=== PATIENT | female | born 1985 | race Caucasian/White ===

== ENCOUNTER 2024-04-22 19:03 | Emergency (ER) | payer BC, SELFPAY ==
[2024-04-22 19:07] VITALS: BP 123/93; PULSE 86; RESP 16; TEMP 36.7; O2SAT 98; BMI 41.3
--- NOTE | 2024-04-22 20:26 | ED_ITS ---
HPI - Wound/Laceration General Date Seen: 04/22/24 Chief Complaint: Laceration/Wound Stated Complaint: cut L hand Time Seen by Provider: 04/22/24 19:09 Source: patient and family Mode of arrival: ambulatory Limitations: no limitations History of Present Illness HPI narrative: Patient is a very nice 38-year-old female who presents here after she lacerated her left palm, while she was preparing on avocado. This occurred approximately 10 minutes before being seen, she describes a laceration over the lateral side her ulnar side of her left palm, she does not have any numbness tingling, can move her fingers normally. Her last tetanus she believes is up-to-date, she does have numerous allergies to antibiotics. Was really no evidence of any bleeding. Extremity Location: Left: hand Place: home Patient tetanus UTD: Yes Context: accidental Associated symptoms: none Treatments prior to arrival: bandage Related Data Home Medications ?Medication ?Instructions ?Recorded ?Confirmed albuterol sulfate 90 mcg/actuation 2 puff inhalation Q4H PRN wheezing 10/31/23 10/31/23 aerosol inhaler (Ventolin HFA) escitalopram oxalate 20 mg tablet 20 mg PO QPM 10/31/23 10/31/23 fluticasone propionate 100 2 inh inhalation BID 10/31/23 10/31/23 mcg/actuation blister powder for inhalation levothyroxine 150 mcg tablet 150 mcg PO DAILY 10/31/23 10/31/23 topiramate 50 mg tablet mg PO QAM 10/31/23 10/31/23 Previous Rx's ?Medication ?Instructions ?Recorded albuterol sulfate 2.5 mg/3 mL 2.5 mg (3 mL) inhalation Q4-6H PRN 10/31/23 (0.083 %) solution for nebulization shortness of breath or wheezing #90 mL Allergies Allergy/AdvReac Type Severity Reaction Status Date / Time amoxicillin Allergy Severe Anaphylaxis Verified 10/31/23 09:19 clindamycin Allergy Severe Anaphylaxis Verified 10/31/23 09:19 Penicillins Allergy Severe Anaphylaxis Verified 10/31/23 09:19 Review of Systems Status of ROS: Reports: 6 or more systems reviewed and unremarkable except as noted in History and below [facility] Medical History Cough ?R05.9 - Cough, unspecified (ICD-10) Asthma ?J45.909 - Unspecified asthma, uncomplicated (ICD-10) Social History Smoking Status: Never smoker Second hand tobacco smoke exposure: No How often do you have a drink containing alcohol: never AUDIT-C Alcohol total score: 0 Non-prescribed substance use: denies use Exam Narrative: Exam Narrative: On examination there is a small laceration to her left palm, on the palmar surface horizontally over the mid palm overlying the of 5th flexor tendon area. That laceration is approximately 2 in in length. There is some gaping fat noted. She is able to both do D IP and PIP flexion, with resistance with no pain, there is no evidence of any numbness tingling or her 4th and 5th finger noted. Cap refill is excellent, noted. There is no evidence of dirtyniss , or foreign body within the wound. Wound is cleaned out with 1 L of normal saline, sterile prep and drape is done. With chlorhexidine. Wound is anesthetized with 1% lidocaine with epinephrine x5 mL, this resulted in good anesthesia, I then probed the wound, and found that to be down to the fat, but not deeper. His then closed with 3 times 4-0 Prolene sutures, to good affect. Estimated blood loss less than 1 mL. She tolerated this well, neurovascular integrity was full at the end of the procedure, there were no complications. Const: Vital Signs, click to edit/add: Vital Signs - 24 hr 04/22/24 19:07 Temperature 98.1 F Pulse Rate [Pulse Oximeter] 86 Respiratory Rate 16 Blood Pressure [Ri ght Upper Arm] 123/93 H Pulse Oximetry 98 Oxygen Delivery Me thod Room Air Documenting provider has reviewed patient's vital signs: yes Course Vital Signs Vital signs: Initial Vital Signs Temperature 98.1 F 04/22/24 19:07 Temperature Source Temporal Artery Scan 04/22/24 19:07 Pulse Rate 86 04/22/24 19:07 Respiratory Rate 16 04/22/24 19:07 Blood Pressure 123/93 H 04/22/24 19:07 Blood Pressure Mean 103 04/22/24 19:07 Blood Pressure Position Sitting 04/22/24 19:07 Pulse Oximetry 98 04/22/24 19:07 Oxygen Delivery Method Room Air 04/22/24 19:07 Vital Signs Temperature 98.1 F 04/22/24 19:07 Pulse Rate 86 04/22/24 19:07 Respiratory Rate 16 04/22/24 19:07 Blood Pressure 123/93 H 04/22/24 19:07 Pulse Oximetry 98 04/22/24 19:07 Oxygen Delivery Method Room Air 04/22/24 19:07 Temperature 98.1 F 04/22/24 19:07 Pulse Rate 86 04/22/24 19:07 Respiratory Rate 16 04/22/24 19:07 Blood Pressure 123/93 H 04/22/24 19:07 Pulse Oximetry 98 04/22/24 19:07 Oxygen Delivery Method Room Air 04/22/24 19:07 Medications Administered Medications: Discontinued Medications Generic Name Dose Route Start Last Admin Trade Name Freq PRN Reason Stop Dose Admin Lidocaine/Epinephrine 20 ml 04/22/24 19:14 04/22/24 19:25 Lidocaine 1%-Epi 1:100,000 20 Ml INFILTRATI 04/22/24 19:15 20 ml ONCE ONE Administration Discharge Plan Discharge Clinical Impression: Laceration of hand Patient Disposition: Home w/ Parent or Adult Condition: Stable Instructions: Laceration (DC) Additional Instructions: Home rest, bacitracin daily to the wound. Recommend the bandage for the 1st 3-4 days, showering is encouraged, but no swimming, signs of infection such as redness pain, fevers chills, or swelling you should be seen in follow-up. Sutures should come out in 10 days I recommend he do this with her primary care physician. Return here as needed. Activity Level: Light activity Prescriptions: No Action levothyroxine 150 mcg tablet 150 mcg PO DAILY topiramate 50 mg tablet PO QAM escitalopram oxalate 20 mg tablet 20 mg PO QPM albuterol sulfate [Ventolin HFA] 90 mcg/actuation HFA aerosol inhaler 2 puff inhalation Q4H PRN (Reason: wheezing) fluticasone propionate 100 mcg/actuation blister with device 2 inh inhalation BID albuterol sulfate 2.5 mg /3 mL (0.083 %) solution for nebulization 2.5 mg inhalation Q4-6H PRN (Reason: shortness of breath or wheezing) Qty: 90 1RF Follow Up/Referrals: Provider,Not a Local [Primary Care Provider] - Stand Alone Forms: MyHealth Info Instructions
== END 2024-04-22 20:16 | disposition home or self-care (01) ==
PROVIDERS: Emergency Provider Family Medicine
DX: S61.412A Laceration without foreign body of left hand, initial encounter (principal); W26.0XXA Contact with knife, initial encounter
CPT/HCPCS: 12001; 99283

== ENCOUNTER 2024-05-02 11:31 | Emergency (ER) | payer BC, SELFPAY ==
[2024-05-02 12:06] VITALS: BP 113/75; PULSE 67; RESP 18; TEMP 36.1; O2SAT 96; BMI 41.3
--- NOTE | 2024-05-02 12:10 | ED.GENADULT ---
HPI - General Adult General Date Seen: 05/02/24 Chief complaint: Skin/Abscess/Foreign Body Stated complaint: Attempted suture removal, redness, not healing Time Seen by Provider: 05/02/24 12:10 History of Present Illness HPI narrative: Patient was seen in the ER 10 days ago on 04/22 with a laceration on her left hand on her palm. Wound was repaired by Dr. Casas using #3 4-0 Prolene sutures. No vascular, neurologic, or tendon injury. The wounds been healing well. She has been keeping covered with bandages and cleaning it. No concern for worsening redness or purulent drainage. 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 She notes that sometimes when she opens up her left hand she can feel the wound edge pulling apart 100 stitches. It was 10 days out from the suture placement and she knew today was the day to remove the stitches. She remove them herself at home. After removing the stitches she noticed that the wound edge pulled apart. Also there is a little rim of pink skin around the wound edge. No purulent drainage. No bleeding. She feels like it does not look quite right since stitches pulled out so she came in. Related Data Home Medications ?Medication ?Instructions ?Recorded ?Confirmed albuterol sulfate 90 mcg/actuation 2 puff inhalation Q4H PRN wheezing 10/31/23 05/02/24 aerosol inhaler (Ventolin HFA) escitalopram oxalate 20 mg tablet 20 mg PO QPM 10/31/23 05/02/24 fluticasone propionate 100 2 inh inhalation BID 10/31/23 05/02/24 mcg/actuation blister powder for inhalation levothyroxine 150 mcg tablet 150 mcg PO DAILY 10/31/23 05/02/24 Previous Rx's ?Medication ?Instructions ?Recorded albuterol sulfate 2.5 mg/3 mL 2.5 mg (3 mL) inhalation Q4-6H PRN 10/31/23 (0.083 %) solution for nebulization shortness of breath or wheezing #90 mL Allergies Allergy/AdvReac Type Severity Reaction Status Date / Time amoxicillin Allergy Severe Anaphylaxis Verified 05/02/24 12:12 clindamycin Allergy Severe Anaphylaxis Verified 05/02/24 12:12 Penicillins Allergy Severe Anaphylaxis Verified 05/02/24 12:12 [facility] Medical History Cough ?R05.9 - Cough, unspecified (ICD-10) Asthma ?J45.909 - Unspecified asthma, uncomplicated (ICD-10) Social History Smoking Status: Never smoker Second hand tobacco smoke exposure: No How often do you have a drink containing alcohol: never AUDIT-C Alcohol total score: 0 Non-prescribed substance use: denies use Exam Narrative: Exam Narrative: Constitutional: Appears well-developed and well-nourished. Active. Non-toxic appearing. HENT: Head: Atraumatic. No signs of injury. Nose: No nasal discharge. Mouth/Throat: Mucous membranes are moist. Pharynx is normal. Tonsils symmetric. Uvula midline. Airway patent. Eyes: Conjunctivae normal and EOM are normal. Pupils are equal, round, and reactive to light. Right eye exhibits no discharge. Left eye exhibits no discharge. No icterus. Neck: Normal range of motion. Neck supple. No adenopathy. No stridor. Cardiovascular: Normal rate and regular rhythm. No murmur heard. No murmurs, rubs, or gallops. Brisk capillary refill Pulmonary/Chest: Effort normal. No stridor. No respiratory distress. No wheezes.No rhonchi. No rales. No retractions. Musculoskeletal: Normal range of motion in her elbow and wrist.. No edema. No tenderness. No deformity. She has a healing 1.5 cm laceration on the ulnar side palmar surface of her left hand. The laceration runs perpendicular to the axis of her 5th and 4th metacarpals. There is a small 2-3 mm rim of pink erythema consistent with healing but not suggestive of infection. No bleeding. No purulent drainage. No palpable fluctuance. No gas in the soft tissue. She has the lyles from 3 sutures that have been removed on each side. The wound edge has dehisced about 1 mm and I can see signs of granulation tissue and healing at the base of the wound. No foreign body. Intact radial and ulnar digital nerve function in the fingers including the 3rd, 4th, 5th digits. Normal flexion and extension of the MCP, PIP, DI P joints. Patient feels if she hyperextends her 5th digit that she can feel her wound edge pulling apart. Neurological: Alert. Normal strength. No cranial nerve deficit or sensory deficit. Coordination normal. GCS eye subscore is 4. GCS verbal subscore is 5. GCS motor subscore is 6. Skin: Skin is warm. No rash noted. Const: Vital Signs, click to edit/add: Vital Signs - 24 hr 05/02/24 12:06 Temperature 96.9 F L Pulse Rate [Pulse Oximeter] 67 Respiratory Rate 18 Blood Pressure [Ri ght Upper Arm] 113/75 Pulse Oximetry 96 Oxygen Delivery Me thod Room Air Course Vital Signs Vital signs: Initial Vital Signs Temperature 96.9 F L 05/02/24 12:06 Temperature Source Temporal Artery Scan 05/02/24 12:06 Pulse Rate 67 05/02/24 12:06 Respiratory Rate 18 05/02/24 12:06 Blood Pressure 113/75 05/02/24 12:06 Blood Pressure Mean 87 05/02/24 12:06 Blood Pressure Position Sitting 05/02/24 12:06 Pulse Oximetry 96 05/02/24 12:06 Oxygen Delivery Method Room Air 05/02/24 12:06 Vital Signs Temperature 96.9 F L 05/02/24 12:06 Pulse Rate 67 05/02/24 12:06 Respiratory Rate 18 05/02/24 12:06 Blood Pressure 113/75 05/02/24 12:06 Pulse Oximetry 96 05/02/24 12:06 Oxygen Delivery Method Room Air 05/02/24 12:06 Temperature 96.9 F L 05/02/24 12:06 Pulse Rate 67 05/02/24 12:06 Respiratory Rate 18 05/02/24 12:06 Blood Pressure 113/75 05/02/24 12:06 Pulse Oximetry 96 05/02/24 12:06 Oxygen Delivery Method Room Air 05/02/24 12:06 Medical Decision Making MDM Narrative Medical decision making narrative: Pleasant generally healthy 38-year-old female who is 10 days status post a kitchen related laceration to her left palm. It had been repaired on the day of injury here in the ER. Today was 10 days out from a pair and she was due to have sutures removed. She removed her sutures at home and after removing them it sounds like her wound edge dehisced. Although it has been 10 days since suture placement, and this was the day that she was instructed to follow up for suture removal, It looks like the wound was not completely heal prior to removing the stitches neighbor probably removed a little bit prematurely. Fortunately no signs of infection. No signs of tendon or vascular or nerve injury. At this point best course of action would be to Steri-Strip the wound edge to supported. She will remain off work for the next 2 days (on and Tuesday) and then through the weekend to give her 4 days to rest her left hand. If she avoids activities that require gripping and bending and flexion extending her fingers, this should allow the wound edge time with support to heal. She will avoid submerging hand under water and keep the wound clean and dry to prevent infection. Discussed the plan of care with the patient. She is agreeable. Discharge Plan Discharge Clinical Impression: Dehiscence of wound Patient Disposition: Home, Self-Care Condition: Stable Instructions: Skin Adhesive Care (ED) Additional Instructions: As we discussed, we have to keep the wound edge supported with the Steri-Strips. Try to keep her hand clean and dry so that the Steri-Strips do not peel off and to avoid getting the wound infected. This should heal with the Steri-Strips and the wound edge will gradually heal together. If you have any concerns such as if the Steri-Strips are not holding or the Wound pulls apart or starts bleeding or if it becomes red, begins draining pus or if you have any sign of infection, please come back to the ER right away to be rechecked. Avoid activities such as bending and flexing your fingers on her left hand, grabbing anything more than 1 lb, or any activity that would get your left hand wet for the next 4 days. Keep the Steri-Strips in place to support the wound. Prescriptions: No Action levothyroxine 150 mcg tablet 150 mcg PO DAILY escitalopram oxalate 20 mg tablet 20 mg PO QPM albuterol sulfate [Ventolin HFA] 90 mcg/actuation HFA aerosol inhaler 2 puff inhalation Q4H PRN (Reason: wheezing) fluticasone propionate 100 mcg/actuation blister with device 2 inh inhalation BID albuterol sulfate 2.5 mg /3 mL (0.083 %) solution for nebulization 2.5 mg inhalation Q4-6H PRN (Reason: shortness of breath or wheezing) Qty: 90 1RF Follow Up/Referrals: Provider,Not a Local [Primary Care Provider] - Stand Alone Forms: [employer] Info Instructions
== END 2024-05-02 13:04 | disposition home or self-care (01) ==
LOC: ED 12:57
PROVIDERS: Emergency Provider Emergency Medicine
DX: T81.33XA Disruption of traumatic injury wound repair, initial encounter (principal)
CPT/HCPCS: 99282